=== PATIENT | male | born 1985 | race Two or more races ===

== ENCOUNTER 2022-11-21 18:56 | Inpatient (IN) | payer MEDICAID, OTHER ==
[~2022-11-21] VITALS: Ht 167.6 cm; Wt 72.0 kg
[2022-11-21 19:39] LABS: Basophils # (auto) 0 10 ^3/uL (0-0.2); Eosinophils # (auto) 0 10 ^3/uL (0-0.8); Eosinophils % (auto) 0.3 % (0.0-7.0); Hemoglobin 9.6 g/dL (13.5-17.5); Monocytes # (auto) 0.2 10 ^3/uL (0-1.3); Neutrophils # (auto) 10.7 10 ^3/uL (1.6-8.6)
[2022-11-21 19:43] LABS: Basophils % (auto) 0.4 % (0.0-2.0); Hematocrit 33.3 % (41.0-53.0); Mean Corpuscular Hemoglobin 20.3 pg (28.0-32.0); Mean Corpuscular Hgb Conc. 28.9 g/dL (32.0-36.0); Mean Corpuscular Volume 70.3 fL (80.0-100.0); Neutrophils % (auto) 89.3 % (37.0-80.0); Nucleated Red Blood Cells % 0.1 %; Red Blood Cells 4.74 10^6/uL (4.5-5.90)
[2022-11-21 19:50] LABS: Red Cell Distribution Width 20.4 % (11.8-14.3)
[2022-11-21 20:17] LABS: Albumin 3.2 g/dL (3.4-5.0); Anion Gap 10 (5-15); Blood Alcohol < 3.0 mg/dL (<10); Blood Urea Nitrogen 12 mg/dL (7-18); Carbon Dioxide 21 mmol/L (21-32); Chloride 111 mmol/L (98-107); Glucose 237 mg/dL (74-106); Magnesium 2.7 mg/dL (1.6-2.6); Potassium 4.1 mmol/L (3.5-5.1); Sodium 142 mmol/L (136-145)
[2022-11-21 20:21] VITALS: PULSE 94; RESP 12; O2SAT 95
[2022-11-21 20:21] LABS: Alanine Aminotransferase 122 U/L (16-61); Alkaline Phosphatase 86 U/L (45-117); Aspartate Aminotransferase 272 U/L (15-37); BUN/Creatinine Ratio 8.6 (10.0-20.0); Bilirubin, Total 0.2 mg/dL (0.2-1.0); GFR African American 79 mL/min; GFR Non-African American 66 mL/min; Salicylate < 1.7 mg/dL (2.8-20.0); Total Protein 7.1 g/dL (6.4-8.2)
[2022-11-21] MEDS ORDERED: NALOXONE HCL 1MG/ML 2ML SYRINGE IV ONE (20:24)
[2022-11-21] MEDS ORDERED: NALOXONE HCL 1MG/ML 2ML SYRINGE ONE (20:24)
[2022-11-21] MEDS ORDERED: SODIUM CHLORIDE 0.9% 1,000 ML IV ONE (20:30)
[2022-11-21 20:31] LABS: Acetaminophen < 2.0 ug/mL (10-30)
[2022-11-21] MEDS ORDERED: ASPirin 325 MG TAB PO ONE (21:15)
[2022-11-21] MEDS ORDERED: NALOXONE HCL 1MG/ML 2ML SYRINGE IV PRN (21:15)
[2022-11-21] MEDS ORDERED: MORPHINE SULFATE INJ 2 MG/ml SYRG IV PRN (22:15)
[2022-11-21] MEDS ORDERED: NITROGLYCERIN 0.4 MG SL TAB SL PRN (22:15)
[2022-11-21] MEDS ORDERED: DEXTROSE (50%) 50ML SYRG IV PRN (22:15)
[2022-11-21] MEDS ORDERED: ONDANSETRON HCL 4 MG/2 ML VIAL IV PRN (22:45)
[2022-11-21] MEDS: cefTRIAXone 1GM/50ML D5W 50 ML IV SCH (22:47)
[2022-11-21] MEDS: SODIUM CHLORIDE 0.9% 1,000 ML IV SCH (23:00)
[2022-11-21] MEDS ORDERED: ALBUTEROL SULF 2.5 MG/0.5ML(0.5%) NEB SOLN NEB PRN (23:00)
[2022-11-21] MEDS ORDERED: IPRATROPIUM BROM 0.5 MG/2.5ML INH SOL NEB PRN (23:00)
[2022-11-21] MEDS: AZITHROMYCIN 500MG/ 250ML 250 ML IV SCH (23:30)
[2022-11-22] VITALS (7 sets, daily range): BP systolic 105–119; BP diastolic 70–84; PULSE 72–80; RESP 12–16; TEMP 98.1–98.2; O2SAT 94–99
[2022-11-22] MEDS: ENOXAPARIN SOD 100 MG/1 ML SYRINGE SC SCH ×2 (00:12→10:58)
[2022-11-22] MEDS: SODIUM CHLORIDE 0.9% 1,000 ML IV SCH ×5 (04:00→21:40)
[2022-11-22 06:56] LABS: Basophils # (auto) 0 10 ^3/uL (0-0.2); Eosinophils # (auto) 0 10 ^3/uL (0-0.8); Lymphocytes # (auto) 0.7 10 ^3/uL (0.4-5.4); Lymphocytes % (auto) 4.7 % (10.0-50.0); Mean Corpuscular Hgb Conc. 29.7 g/dL (32.0-36.0); Monocytes # (auto) 0.6 10 ^3/uL (0-1.3); Red Blood Cells 4.53 10^6/uL (4.5-5.90)
[2022-11-22 06:58] LABS: Hematocrit 31.4 % (41.0-53.0); Hemoglobin 9.3 g/dL (13.5-17.5); Mean Corpuscular Hemoglobin 20.6 pg (28.0-32.0); Mean Corpuscular Volume 69.4 fL (80.0-100.0); Monocytes % (auto) 4.1 % (0.0-12.0); Neutrophils # (auto) 12.9 10 ^3/uL (1.6-8.6); Neutrophils % (auto) 91.2 % (37.0-80.0); White Blood Cell 14.2 10^3/uL (4.4-10.8)
[2022-11-22] MEDS: ACCU-CHEK COMFORT CURVE STRIP VI SCH ×4 (06:58→21:41)
[2022-11-22 07:01] LABS: Albumin 3.3 g/dL (3.4-5.0); BUN/Creatinine Ratio 11.6 (10.0-20.0); Calcium 7.8 mg/dL (8.5-10.1)
[2022-11-22 07:03] LABS: Bilirubin, Total 0.3 mg/dL (0.2-1.0); Red Cell Distribution Width 20.3 % (11.8-14.3); Total Protein 6.9 g/dL (6.4-8.2)
[2022-11-22] MEDS: InsuLIN REG 1unit/0.01ml Soln (100units/ml) SC SCH ×4 (07:30→21:45)
[2022-11-22] MEDS ORDERED: ENOXAPARIN SOD 40 MG/0.4 ML SYRINGE SC SCH (10:00)
[2022-11-22] MEDS: PANTOPRAZOLE 40 MG/10 ML VIAL INJ IV SCH (10:58)
[2022-11-22] MEDS: ASPirin-EC 81 mg tab PO SCH (10:58)
[2022-11-22 11:02] LABS: INR 1.32 (0.9-1.15)
[2022-11-22 12:04] LABS: Urine Bacteria NONE SEEN /hpf (None Seen); Urine Blood Negative /uL (Negative); Urine Mucus FEW (None Seen); Urine Specific Gravity 1.044 (1.001-1.035); Urine WBC 1 /hpf (0 - 3)
[2022-11-22 12:15] LABS: Alcohol, Urine < 3.0 mg/dL (0-10); Amphetamine Screen, Urine NEGATIVE (NEGATIVE); Barbiturate Scree,Urine NEGATIVE (NEGATIVE); Benzodiazephine Screen, Urine NEGATIVE (NEGATIVE); Cannabinoid Screen, Urine POSITIVE (NEGATIVE); Opiate Scree,Urine NEGATIVE (NEGATIVE)
[2022-11-22 12:26] LABS: Cocaine Screen, Urine NEGATIVE (NEGATIVE); Phencyclidine Screen, Urine NEGATIVE (NEGATIVE)
[2022-11-22] MEDS: cefTRIAXone 1GM/50ML D5W 50 ML IV SCH (20:35)
[2022-11-22] MEDS: AZITHROMYCIN 500MG/ 250ML 250 ML IV SCH (21:41)
[2022-11-22] MEDS ORDERED: ATORVASTATIN 20 MG TAB PO SCH (22:00)
[2022-11-23 05:00] VITALS: BP 118/80; PULSE 91; RESP 16; TEMP 98.2; O2SAT 95
[2022-11-23] MEDS: SODIUM CHLORIDE 0.9% 1,000 ML IV SCH ×3 (05:00→15:00)
[2022-11-23 05:46] LABS: Basophils # (auto) 0 10 ^3/uL (0-0.2); Eosinophils # (auto) 0 10 ^3/uL (0-0.8); Hematocrit 28.7 % (41.0-53.0); White Blood Cell 10.8 10^3/uL (4.4-10.8)
[2022-11-23 05:47] LABS: Basophils % (auto) 0.4 % (0.0-2.0); Eosinophils % (auto) 0.1 % (0.0-7.0); Hemoglobin 8.7 g/dL (13.5-17.5); Lymphocytes # (auto) 1.4 10 ^3/uL (0.4-5.4); Lymphocytes % (auto) 13.1 % (10.0-50.0); Mean Corpuscular Hemoglobin 20.9 pg (28.0-32.0); Mean Corpuscular Hgb Conc. 30.4 g/dL (32.0-36.0); Mean Corpuscular Volume 68.5 fL (80.0-100.0); Monocytes % (auto) 9.4 % (0.0-12.0); Neutrophils # (auto) 8.3 10 ^3/uL (1.6-8.6); Red Blood Cells 4.18 10^6/uL (4.5-5.90); Red Cell Distribution Width 20.3 % (11.8-14.3)
[2022-11-23] MEDS: ACCU-CHEK COMFORT CURVE STRIP VI SCH ×2 (06:05→11:07)
[2022-11-23] MEDS: PIPERACILLIN-TAZOB 3.375GM 100 ML IV SCH ×2 (06:05→13:43)
[2022-11-23 06:08] LABS: BUN/Creatinine Ratio 13.1 (10.0-20.0); Potassium 4.1 mmol/L (3.5-5.1)
[2022-11-23] MEDS: InsuLIN REG 1unit/0.01ml Soln (100units/ml) SC SCH ×2 (06:12→11:07)
[2022-11-23] MEDS ORDERED: ENOXAPARIN SOD 40 MG/0.4 ML SYRINGE SC SCH (07:00)
[2022-11-23] MEDS ORDERED: ENOXAPARIN SOD 100 MG/1 ML SYRINGE SC SCH (07:00)
[2022-11-23] MEDS ORDERED: PIPERACILLIN-TAZOB 3.375GM 100 ML IV SCH (07:00)
[2022-11-23 08:00] VITALS: BP 116/73; PULSE 73; RESP 18; TEMP 99.2; O2SAT 95
[2022-11-23 09:00] VITALS: BP 116/73; PULSE 79; RESP 18; TEMP 99.2; O2SAT 95
[2022-11-23 09:12] LABS: INR 1.19 (0.9-1.15); Partial Thromboplastin Time 27.7 SEC (24.5-34.5)
[2022-11-23] MEDS: PANTOPRAZOLE 40 MG/10 ML VIAL INJ IV SCH (10:40)
[2022-11-23] MEDS: ASPirin-EC 81 mg tab PO SCH (10:40)
[2022-11-23 13:00] VITALS: BP 122/91; PULSE 71; RESP 18; TEMP 98.6; O2SAT 93
[2022-11-23 15:25] VITALS: BP 122/71; PULSE 71; RESP 18; TEMP 98.6; O2SAT 93
[2022-11-23] MEDS ORDERED: FERROUS SULFATE 325mg EC TAB PO SCH (18:00)
== END 2022-11-23 17:00 | disposition home or self-care (01) | DRG 720 ==
LOC: EDBD 18:56 → ER 18:56 → TELE 22:12 → TELE-WESTW 11-22 21:10
PROVIDERS: ADMIT Internal Medicine; ATTEND Student in an Organized Health Care Education/Training Program
DX: A41.9 Sepsis, unspecified organism (principal); I21.4 Non-ST elevation (NSTEMI) myocardial infarction; J69.0 Pneumonitis due to inhalation of food and vomit; G92.9 Unspecified toxic encephalopathy; R74.01 Elevation of levels of liver transaminase levels; F19.10 Other psychoactive substance abuse, uncomplicated; D50.9 Iron deficiency anemia, unspecified; E86.0 Dehydration; R79.89 Other specified abnormal findings of blood chemistry; T40.2X1A Poisoning by other opioids, accidental (unintentional), initial encounter; Z59.00 Homelessness unspecified; Y92.89 Other specified places as the place of occurrence of the external cause; Z71.51 Drug abuse counseling and surveillance of drug abuser
CPT/HCPCS: 36415; 70450; 71045; 71275; 80048; 80053; 80061; 80307; 80320; 80329; 81001; 82962; 83036; 83690; 83735; 83880; 84443; 84484; 85025; 85379; 85610; 85730; 86850; 86900; 86901; 93005; 93306; 93970; C9113; G0378; J0696; J1815; J2405; J2543